=== PATIENT | female | born 1960 | race Caucasian/White ===

== ENCOUNTER 2020-09-02 15:18 | Emergency (ER) | payer OTHER ==
[~2020-09-02] VITALS: Ht 147.3 cm; Wt 86.2 kg
[2020-09-02 15:27] VITALS: BP 154/75
--- NOTE | 2020-09-02 15:27 | NUR ---
PT AMBULATED TO BED 9.
--- NOTE | 2020-09-02 15:36 | NUR ---
59/F presents to ED with c/o left leg pain and burning x3 days. Patient states she has had a burning sensation and pain radiating down her left x3 days and was seen at urgent care today. Patient was sent here from urgent care to rule out DVT. Patient states she took something for the pain last night but cannot recall the name with minimal relief. Patient is able to ambulate without assistance, no redness or swelling noted at site.
--- NOTE | 2020-09-02 15:43 | NUR ---
Ultrasound at bedside
[2020-09-02 17:10] VITALS: BP 154/75
--- NOTE | 2020-09-02 17:11 | NUR ---
Patient discharged with v/s stable. Written and verbal after care instructions given and explained. Patient verbalized understanding. Ambulatory with steady gait. All questions addressed prior to discharge. Advised to follow up with PMD.
== END 2020-09-02 17:11 | disposition home or self-care (01) ==
LOC: MED 15:18
DX: M79.605 Pain in left leg (principal)
CPT/HCPCS: 93970; 99284